=== PATIENT | female | born 1990 ===

== ENCOUNTER 2017-09-05 19:16 | Emergency (ER) | payer SELFPAY ==
[2017-09-05 20:01] VITALS: BMI 23.8
[2017-09-05] MEDS ORDERED: Iohexol 240 (50 ml) PO ONE (20:02)
[2017-09-05] MEDS ORDERED: Sodium Chloride 0.9% 1,000 ML IV STA (20:02)
--- NOTE | 2017-09-05 20:06 | ED PDOC ---
HPI: Abdomen Time Seen by Provider: 09/05/17 19:40 Chief Complaint (Provider): Abd pain History Per: Patient History/Exam Limitations: no limitations Onset/Duration Of Symptoms: Days () Additional Complaint(s): Pt. with abd pain L upper and lower. Left flank pain. Over the weekend and Saturday pt. had a lot of alcohol and coccaine. Has been having nausea, vomit, diarrhea since as well. No chest pain, weakness, headaches, dizziness, leg pain. No cough. No dysuria. Past Medical History Reviewed: Nursing Documentation, Vital Signs Vital Signs: Last Vital Signs Temp 98.5 F 09/05/17 20:24 Pulse 68 09/05/17 20:24 Resp 16 09/05/17 20:24 BP 132/73 09/05/17 20:24 Pulse Ox 98 09/05/17 20:24 - Medical History PMH: Anxiety - Surgical History Surgical History: No Surg Hx - Family History Family History: States: Unknown Family Hx - Living Arrangements Living Arrangements: With Family - Social History Alcohol: Occasional Drugs: Cocaine - Immunization History Hx Tetanus Toxoid Vaccination: Yes Hx Influenza Vaccination: No Hx Pneumococcal Vaccination: No - Home Medications Home Medications: Ambulatory Orders Medication Instructions Recorded Famotidine [Pepcid] 20 mg PO DAILY PRN #6 tab 03/20/15 Ibuprofen [Motrin] 600 mg PO Q8 PRN #6 tab 03/20/15 - Allergies Allergies/Adverse Reactions: Allergies Allergy/AdvReac Type Severity Reaction Status Date / Time No Known Allergies Allergy Verified 03/20/15 07:12 Review of Systems ROS Statement: Except As Marked, All Systems Reviewed And Found Negative Gastrointestinal: Positive for: Nausea, Vomiting, Abdominal Pain, Diarrhea Physical Exam - Reviewed Nursing Documentation Reviewed: Yes Vital Signs Reviewed: Yes - Physical Exam Appears: Positive for: Non-toxic, No Acute Distress Head Exam: Positive for: ATRAUMATIC, NORMAL INSPECTION, NORMOCEPHALIC Skin: Positive for: Normal Color, Warm, DRY Eye Exam: Positive for: EOMI, Normal appearance, PERRL ENT: Positive for: Normal ENT Inspection Neck: Positive for: Normal, Painless ROM Cardiovascular/Chest: Positive for: Regular Rate, Rhythm Respiratory: Positive for: CNT, Normal Breath Sounds Gastrointestinal/Abdominal: Positive for: Soft, Tenderness (L upper and lower). Negative for: Distended, Guarding Back: Positive for: L CVA Tenderness. Negative for: R CVA Tenderness Extremity: Positive for: Normal ROM Neurologic/Psych: Positive for: Alert, Oriented - Laboratory Results Result Diagrams: 09/05/17 20:45 09/05/17 20:45 Interpretation Of Abn Labs: no acute - CT Scan/US ct Other Rad Studies (CT/US): Read By Radiologist Other Rad Interpretation: no acute - Progress ED Course And Treament: 2355: Stable. AAOx3. Pain free. Tolerated PO. Fu with pcp. Disposition - Clinical Impression Clinical Impression: Abdominal pain - Patient ED Disposition Is Patient to be Admitted: No Counseled Patient/Family Regarding: Studies Performed, Diagnosis, Need For Followup - Disposition Referrals: [facility] [Outside] - 09/09/17 Disposition: Routine/Home Disposition Time: 00:09 Condition: STABLE Additional Instructions: Return if not better in 3 days. Instructions: Acute Abdomen (Belly Pain)
[2017-09-05] MEDS ORDERED: Iohexol 240 (50 ml) ONE (20:10)
[2017-09-05] MEDS ORDERED: Famotidine 20mg/50ml 20 MG/50 ML BAG IVPB ONE ×2 (20:11→20:15)
[2017-09-05 20:25] VITALS: BP 132/73; PULSE 68; RESP 16; TEMP 98.5; O2SAT 98
[2017-09-05 21:06] LABS: BASO # 0.1 K/uL (0.0-0.2); BASO % 0.6 % (0.0-2.0); EOS # 0.1 K/uL (0.0-0.7); EOS % 0.8 % (0.0-4.0); LYMPH % 23.5 % (20.0-40.0); MEAN CELL VOLUME 97.1 fl (81.0-99.0); MEAN CORPUSCULAR HEMOGLOBIN 32.1 pg (27.0-31.0); MEAN PLATELET VOLUME 10.2 fl (7.2-11.7); MONO # 0.7 K/uL (0.0-0.8); MONO % 7.8 % (0.0-10.0); NEUT # 5.8 K/uL (1.8-7.0); NEUT % 67.3 % (50.0-75.0); RBC 4.04 Mil/uL (3.80-5.20); RED CELL DISTRIBUTION WIDTH 13.6 % (11.5-14.5); WHITE BLOOD COUNT 8.6 K/uL (4.8-10.8)
[2017-09-05 21:08] LABS: PHENCYCLIDINE, UR NEGATIVE (NEGATIVE)
[2017-09-05 21:09] LABS: ALB/GLOB RATIO 1.2 (1.0-2.1); ALBUMIN 4.4 g/dL (3.5-5.0); ALT/SGPT 41 U/L (9-52); AST/SGOT 28 U/L (14-36); BLOOD UREA NITROGEN 13 mg/dl (7-17); CALCIUM 9.5 mg/dL (8.4-10.2); GFR AFRICAN-AMERICAN > 60; GFR NON-AFRICAN AMERICAN > 60; LIPASE 76 U/L (23-300)
[2017-09-05 21:16] LABS: BARBITURATES, UR NEGATIVE (NEGATIVE); BENZODIAZEPINES, UR NEGATIVE (NEGATIVE); OPIATES, UR NEGATIVE (NEGATIVE)
[2017-09-05] MEDS ORDERED: Iohexol 300 100 ML IJ ONE (22:22)
[2017-09-05] MEDS ORDERED: Sodium Chloride 0.9% 50 ML IV ONE (22:22)
--- NOTE | 2017-09-06 00:05 | CT ---
EXAM: CT Abdomen and Pelvis With Intravenous Contrast EXAM DATE/TIME: 09/05/2017 8:02 PM CLINICAL HISTORY: 26 years old, female; Pain; Abdominal pain; Localized; Left; Additional info: Abd pain TECHNIQUE: Axial computed tomography images of the abdomen and pelvis with intravenous contrast. All CT scans at this facility use one or more dose reduction techniques, viz.: automated exposure control; ma/kV adjustment per patient size (including targeted exams where dose is matched to indication; i.e. head); or iterative reconstruction technique. Coronal and sagittal reformatted images were created and reviewed. CONTRAST: 95 mL of [id number] administered intravenously. COMPARISON: There are no prior studies for comparison. FINDINGS: Lower thorax: Heart size is normal. Lung bases are clear ABDOMEN: Liver: There is fatty infiltration of the liver. Gallbladder and bile ducts: unremarkable Pancreas: unremarkable Spleen: unremarkable Adrenals: unremarkable Kidneys and ureters: unremarkable Stomach and bowel: Stomach is partially distended. Rotation is normal. Small bowel is partially opacified with oral contrast. There is no obstruction. Ileocecal region is unremarkable. Appendix and terminal ileum are unremarkable. Colon is incompletely distended which limits evaluation. PELVIS: Appendix: See stomach and bowel Bladder: unremarkable Reproductive: Uterus and adnexal structures are unremarkable. ABDOMEN and PELVIS: Intraperitoneal space: There is no free air or free fluid. Bones/joints: There are no acute osseous abnormalities. Soft tissues: unremarkable Vasculature: Vascular structures are unremarkable. Lymph nodes: There is shotty adenopathy. IMPRESSION: Fatty liver; no acute solid visceral or bowel abnormality Additional nonemergent findings as described above.
== END 2017-09-06 00:18 | disposition home or self-care (01) ==
LOC: H.ER 19:16
DX: R10.32 Left lower quadrant pain (principal); F41.9 Anxiety disorder, unspecified
CPT/HCPCS: 74177; 80053; 81025; 83690; 85025; 96361; 96374; 96375; 99283; G0480; J1885; J2405; J7030; Q9966; Q9967

== ENCOUNTER 2018-08-06 13:42 | Emergency (ER) | payer SELFPAY ==
[2018-08-06 13:43] VITALS: BMI 23.8
[2018-08-06] MEDS ORDERED: Sodium Chloride 0.9% 1,000 ML IV ONE (14:18)
--- NOTE | 2018-08-06 14:46 | ED PDOC ---
HPI: Abdomen Time Seen by Provider: 08/06/18 13:52 Chief Complaint (Nursing): Abdominal Pain Chief Complaint (Provider): Abdominal Pain History Per: Patient History/Exam Limitations: no limitations Onset/Duration Of Symptoms: Days (11) Current Symptoms Are (Timing): Still Present Location Of Pain/Discomfort: Suprapubic Quality Of Discomfort: Cramping Associated Symptoms: denies: Urinary Symptoms Additional Complaint(s): 27 year old female presents to the ED for an evaluation of possible and abdominal cramping for 11 days associated with one day of spotting (last week) intermittent dizziness, fatigue and bloating. Patient assumed this was secondary to her regular period. However, due to persistence of symptoms, she took a test last night that was positive. Patient states this is her second and she was 9 years ago which was terminated by D&C. Prior to arrival, patient did not take any medication. Currently, patient describes her abdominal pain as cramping and rates it 8/10. Otherwise, patient denies nausea, vomiting, diarrhea, fever, vaginal discharge, urinary symptoms or hematuria. LNMP: last week of June PMD: No Family Provider OBGYN: None Past Medical History Reviewed: Historical Data, Nursing Documentation, Vital Signs Vital Signs: Last Vital Signs Temp 97.6 F 08/06/18 13:45 Pulse 90 08/06/18 13:45 Resp 16 08/06/18 13:45 BP 126/72 08/06/18 13:45 Pulse Ox 100 08/06/18 13:45 Primary Care Provider: FAMILY PROVIDER,NO - Medical History PMH: Anxiety - Surgical History Other surgeries: D&C - Family History Family History: States: Unknown Family Hx - Home Medications Home Medications: Ambulatory Orders Medication Instructions Recorded Famotidine [Pepcid] 20 mg PO DAILY PRN #6 tab 03/20/15 Ibuprofen [Motrin] 600 mg PO Q8 PRN #6 tab 03/20/15 Acetaminophen [Acetaminophen 8 650 mg PO Q8 PRN #21 tablet.er 08/06/18 Hour] 21/Iron Fu/Folic Acid 1 each PO DAILY #60 tablet 08/06/18 [ Complete Caplet] - Allergies Allergies/Adverse Reactions: Allergies Allergy/AdvReac Type Severity Reaction Status Date / Time No Known Allergies Allergy Verified 08/06/18 13:47 Review of Systems ROS Statement: Except As Marked, All Systems Reviewed And Found Negative Constitutional: Positive for: Other (fatigue ). Negative for: Fever Gastrointestinal: Positive for: Abdominal Pain, Other (bloating ). Negative for: Nausea, Vomiting, Diarrhea Genitourinary Female: Positive for: Vaginal Bleeding (spotting ). Negative for: Dysuria, Frequency, Incontinence, Hematuria, Vaginal Discharge Neurological: Positive for: Dizziness Physical Exam - Reviewed Nursing Documentation Reviewed: Yes Vital Signs Reviewed: Yes - Physical Exam Comments: GENERAL APPEARANCE: Patient is awake, alert, oriented x 3, in no acute distress. SKIN: Warm, dry; (-) cyanosis. EYES: (-) conjunctival injection ENMT: Mucous membranes moist. Airway patent, (-) stridor. NECK: Supple, FROM CHEST AND RESPIRATORY: (-) rales, (-) rhonchi, (-) wheezes; breath sounds equal bilaterally. Respirations even and nonlabored, speaking in full sentences. HEART AND CARDIOVASCULAR: (-) irregularity ABDOMEN AND GI: Soft. (-) distention. Bowel sounds active x4; (+) mild suprapubic tenderness. (-) guarding, (-) rebound, (-) palpable masses, (-) CVA tenderness. EXTREMITIES: (-) deformity NEURO AND PSYCH: Mental status as above; (-) focal findings. Gait: steady. Speech: clear. (-) facial asymmetry - Laboratory Results Result Diagrams: 08/06/18 14:55 08/06/18 14:55 Urine POC: Positive - ECG O2 Sat by Pulse Oximetry: 100 (RA) Pulse Ox Interpretation: Normal Medical Decision Making Medical Decision Making: Time: 1420 Impression: 27yo female with abdominal pain and possible Plan: --Type and screen --BETA-HCG, Quantitative --CMP -- test --CBC w/ differential --Antivert 25mg PO --Normal saline 1000 mls/hr --Acetaminophen 650mg PO --IV insertion --U/A --Re-evaluation 1540 Upreg: positive Beta Quant: 1818.50 otherwise labs and U/A grossly unremarkable. Results discussed with patient who states that she has a family history of ectopic - mother. She notes that she is leaving the country to [facility] Saturday morning. She further notes that she does not have a PMD or OBGYN to follow up with outpatient. Patient advised that given beta quant value, IUP unlikely to be demonstrated on U/S. Case discussed with ED Director Dr Moncada who recommends U/S evaluation to evaluate for signs of potential ecoptic . U/S ordered. 1700 On re-evaluation, patient resting comfortably with no additional complaints. Pending U/S evaluation. Blood type: A+ 1730 Patient in U/S. 1810 U/S reviewed, radiology report follows Date of service: 08/06/2018 PROCEDURE: Transabdominal OB Pelvic Ultrasound HISTORY: confirm IUP LMP: 07/01/2018 COMPARISON: None available. FINDINGS: UTERUS: Gestational sac: Single intrauterine gestational sac. Gestational sac diameter measures 0.5 cm too small to characterize gestational age. Yolk sac and pole are not identified on the current examination. Berenice-gestational hemorrhage: None. Uterus measures 9.4 x 3.6 x 5.7 cm. Normal in size and appearance. CERVIX: Measures 2.2 x 1.5 x 2.4 cm. Long and closed. No cervical abnormality seen. RIGHT OVARY: Measures 3.3 x 2.5 x 3.4 cm. No mass lesion. Normal flow. LEFT OVARY: Measures cm. No solid mass. Normal flow. FREE FLUID: None. OTHER FINDINGS: None. IMPRESSION: Single intrauterine gestational sac too small to accurately characterize gestational age. Clinical and ultrasound follow-up is recommended to assess viability. Results discussed with patient with demonstrated understanding. Advised close follow up within 48-72 hours stressed to patient for repeat imaging/beta HCG testing. Advised patient to postpone travel plans however patient states she is unwilling to do so. Return parameters discussed as patient informed viability of not entirely certain and ectopic cannot be completely excluded at this time. On re-evaluation, patient reports improvement of symptoms. On exam, patient remains AAOx3, in no acute distress. Lungs clear to auscultation, cardiac RRR, abdomen soft, non-tender, repeat neuro exam shows no focal findings. Vitals stable. Patient provided with U/S report for follow up. Return parameters discussed and patient advised if unable to make outpatient appointment for follow up, to return to ED. Lab/Diagnostic results d/w the patient in great detail. Diagnosis of positive test, abdominal pain in early d/w the patient. Based on history, exam and diagnostic results, plan will be for outpatient follow up within 48-72 2hours. Patient instructed to follow-up with pmd / referral provided / the clinic in 1- 2 days without fail. Advised to take medication as prescribed. Return to the emergency room at any time for any new or worsening symptoms. Patient states she fully agrees with and understands discharge instructions. States that she agrees with the plan and disposition. Verbalized and repeated discharge instructions and plan. I have given the patient opportunity to ask any additional questions. Scribe Attestation: Documented by Maliha Ybarra, acting as a scribe for Chrystal Rodriguez PA-C. Provider Scribe Attestation: All medical record entries made by the Scribe were at my direction and personally dictated by me. I have reviewed the chart and agree that the record accurately reflects my personal performance of the history, physical exam, medical decision making, and the department course for this patient. I have also personally directed, reviewed, and agree with the discharge instructions and disposition. Disposition - Clinical Impression Clinical Impression: Abdominal pain during in first trimester, Positive test, Dizziness - Patient ED Disposition Is Patient to be Admitted: No Counseled Patient/Family Regarding: Studies Performed, Diagnosis, Need For Followup, Rx Given - Disposition Referrals: [facility] [Outside] [facility] [[facility]] Disposition: Routine/Home Disposition Time: 18:30 Condition: STABLE Additional Instructions: FOLLOW UP WITHIN 48-72 HOURS FOR REPEAT IMAGING AND BETA QUANT TESTING. RETURN TO ED IF UNABLE TO SCHEDULE OUTPATIENT APPT. The emergency medical care you received today was directed at your acute symptoms. If you were prescribed any medication, please fill it and take as directed. It may take several days for your symptoms to resolve. Return to the Emergency Department if your symptoms worsen, do not improve, or if you have any other problems. Please contact your doctor in 2 days for re-evaluation and follow up / or call one of the physicians/clinics you have been referred to that are listed on the Patient Visit Information form that is included in your discharge packet. Bring any paperwork you were given at discharge with you along with any medications you are taking to your follow up visit. Our treatment cannot replace ongoing medical care by a primary care provider (PCP) outside of the emergency department. Prescriptions: Acetaminophen [Acetaminophen 8 Hour] 650 mg PO Q8 PRN #21 tablet.er PRN Reason: Pain, Moderate (4-7) 21/Iron Fu/Folic Acid [ Complete Caplet] 1 each PO DAILY #60 tablet Instructions: Tests, Threatened Miscarriage (DC), Dizziness, Nonvertigo, (DC), Symptoms, - The First Month, - The Second Month, Stomach Pain in Early Forms: [employer] (Montenegrin) Print Language: AUSTRIAN - POA Present On Arrival: None Results - Lab Results Lab Results: 08/06/18 08/06/18 08/06/18 14:55 14:55 14:55 WBC 6.8 RBC 3.94 Hgb 12.8 Hct 38.8 MCV 98.4 MCH 32.5 H MCHC 33.0 RDW 12.7 Plt Count 225 MPV 9.6 Neut % (Auto) 71.2 Lymph % (Auto) 20.9 [place] % (Auto) 6.9 Eos % (Auto) 0.6 Baso % (Auto) 0.4 Neut # (Auto) 4.8 Lymph # (Auto) 1.4 [place] # (Auto) 0.5 Eos # (Auto) 0.0 Baso # (Auto) 0.0 Sodium 137 Potassium 3.9 Chloride 102 Carbon Dioxide 25 Anion Gap 14 BUN 18 H Creatinine 0.8 Est GFR ( Amer) > 60 Est GFR (Non-Af Amer) > 60 Random Glucose 77 Calcium 9.1 Total Bilirubin 0.6 AST 35 ALT 36 Alkaline Phosphatase 38 D Total Protein 7.8 Albumin 4.6 Globulin 3.2 Albumin/Globulin Ratio 1.4 Beta HCG, Quant 1818.50 Urine Color Urine Clarity Urine pH Ur Specific [place] Urine Protein Urine Glucose (UA) Urine Ketones Urine Blood Urine Nitrate Urine Bilirubin Urine Urobilinogen Ur Leukocyte Esterase Urine RBC (Auto) Urine Microscopic WBC Ur Squamous Epith Cells Hyaline Casts Blood Type A POSITIVE Antibody Screen Negative BBK History Checked No verified bt 08/06/18 14:55 WBC RBC Hgb Hct MCV MCH MCHC RDW Plt Count MPV Neut % (Auto) Lymph % (Auto) [place] % (Auto) Eos % (Auto) Baso % (Auto) Neut # (Auto) Lymph # (Auto) [place] # (Auto) Eos # (Auto) Baso # (Auto) Sodium Potassium Chloride Carbon Dioxide Anion Gap BUN Creatinine Est GFR ( Amer) Est GFR (Non-Af Amer) Random Glucose Calcium Total Bilirubin AST ALT Alkaline Phosphatase Total Protein Albumin Globulin Albumin/Globulin Ratio Beta HCG, Quant Urine Color Yellow Urine Clarity Slighty-cloudy Urine pH 5.0 Ur Specific [place] 1.024 Urine Protein Negative Urine Glucose (UA) Neg Urine Ketones Negative Urine Blood Negative Urine Nitrate Negative Urine Bilirubin Negative Urine Urobilinogen 0.2-1.0 Ur Leukocyte Esterase Neg Urine RBC (Auto) 3 Urine Microscopic WBC 1 Ur Squamous Epith Cells < 1 Hyaline Casts 0-2 Blood Type Antibody Screen BBK History Checked
[2018-08-06 15:20] LABS: BASO % 0.4 % (0.0-2.0); EOS % 0.6 % (0.0-4.0); HEMOGLOBIN 12.8 g/dL (12.0-16.0); LYMPH # 1.4 K/uL (1.0-4.3); LYMPH % 20.9 % (20.0-40.0); MEAN CELL VOLUME 98.4 fl (81.0-99.0); MEAN CORPUSCULAR HEMOGLOBIN 32.5 pg (27.0-31.0); MEAN PLATELET VOLUME 9.6 fl (7.2-11.7); MONO # 0.5 K/uL (0.0-0.8); MONO % 6.9 % (0.0-10.0); NEUT # 4.8 K/uL (1.8-7.0); NEUT % 71.2 % (50.0-75.0); RBC 3.94 Mil/uL (3.80-5.20); RED CELL DISTRIBUTION WIDTH 12.7 % (11.5-14.5); WHITE BLOOD COUNT 6.8 K/uL (4.8-10.8)
[2018-08-06 15:28] LABS: ALB/GLOB RATIO 1.4 (1.0-2.1); ALBUMIN 4.6 g/dL (3.5-5.0); ALT/SGPT 36 U/L (9-52); AST/SGOT 35 U/L (14-36); BLOOD UREA NITROGEN 18 mg/dl (7-17); CALCIUM 9.1 mg/dL (8.4-10.2); GFR NON-AFRICAN AMERICAN > 60
[2018-08-06 15:33] LABS: SQUAMOUS EPITHIAL < 1 /hpf (0-5); URINE BILIRUBIN NEGATIVE (NEGATIVE); URINE BLOOD NEGATIVE (NEGATIVE); URINE CLARITY SLIGHTY-CLOUDY (Clear); URINE COLOR YELLOW (YELLOW); URINE GLUCOSE (UA) NEG (NEGATIVE); URINE HYALINE CAST 0-2 /hpf (0-2); URINE LEUKOCYTE ESTERASE NEG Leu/uL (Negative); URINE PROTEIN NEGATIVE (NEGATIVE); URINE UROBILINOGEN 0.2-1.0 mg/dL (0.2-1.0)
--- NOTE | 2018-08-06 18:05 | US ---
Date of service: 08/06/2018 PROCEDURE: Transabdominal OB Pelvic Ultrasound HISTORY: confirm IUP LMP: 07/01/2018 COMPARISON: None available. FINDINGS: UTERUS: Gestational sac: Single intrauterine gestational sac. Gestational sac diameter measures 0.5 cm too small to characterize gestational age. Yolk sac and pole are not identified on the current examination. Berenice-gestational hemorrhage: None. Uterus measures 9.4 x 3.6 x 5.7 cm. Normal in size and appearance. CERVIX: Measures 2.2 x 1.5 x 2.4 cm. Long and closed. No cervical abnormality seen. RIGHT OVARY: Measures 3.3 x 2.5 x 3.4 cm. No mass lesion. Normal flow. LEFT OVARY: Measures cm. No solid mass. Normal flow. FREE FLUID: None. OTHER FINDINGS: None. IMPRESSION: Single intrauterine gestational sac too small to accurately characterize gestational age. Clinical and ultrasound follow-up is recommended to assess viability.
[2018-08-06 19:03] VITALS: BP 124/74; PULSE 72; RESP 18; TEMP 98.2
[2018-08-07 23:50] VITALS: O2SAT 100
== END 2018-08-06 19:07 | disposition home or self-care (01) ==
LOC: H.ER 13:42
DX: O26.891 Other specified pregnancy related conditions, first trimester (principal); R42 Dizziness and giddiness

== ENCOUNTER 2018-08-19 11:06 | Emergency (ER) | payer OTHER ==
[2018-08-19 11:07] VITALS: BMI 23.8
[2018-08-19 11:19] VITALS: BP 126/79; PULSE 92; RESP 16; TEMP 98.6; O2SAT 99
--- NOTE | 2018-08-19 13:54 | ED PDOC ---
HPI: Female Pain Time Seen by Provider: 08/19/18 11:47 Chief Complaint (Nursing): Female Genitourinary Chief Complaint (Provider): Female Genitourinary History Per: Patient History/Exam Limitations: no limitations Onset/Duration Of Symptoms: Days (x2) Additional Complaint(s): 27 years old female presents to ER for evaluation of vaginal spotting for the past 2 days. Patient was evaluated in ER on 08/06/2018 for bleeding and abdominal pain in early and was advised to come back in 2 days but patient reports she went on vacation for 10 days. She denies abdominal pain. LNMP: June 30 PMD: None provided : 2 Para: 0 Past Medical History Reviewed: Historical Data, Nursing Documentation, Vital Signs Vital Signs: Last Vital Signs Temp 98.6 F 08/19/18 11:14 Pulse 92 H 08/19/18 11:14 Resp 16 08/19/18 11:14 BP 126/79 08/19/18 11:14 Pulse Ox 99 08/19/18 11:14 Primary Care Provider: FAMILY PROVIDER,NO - Medical History PMH: Anxiety - Surgical History Surgical History: No Surg Hx - Family History Family History: States: Unknown Family Hx - Social History Current smoker - smoking cessation education provided: No Alcohol: Social Drugs: Denies - Immunization History Hx Tetanus Toxoid Vaccination: Yes Hx Influenza Vaccination: No Hx Pneumococcal Vaccination: No - Home Medications Home Medications: Ambulatory Orders Medication Instructions Recorded Famotidine [Pepcid] 20 mg PO DAILY PRN #6 tab 03/20/15 Ibuprofen [Motrin] 600 mg PO Q8 PRN #6 tab 03/20/15 Acetaminophen [Acetaminophen 8 650 mg PO Q8 PRN #21 tablet.er 08/06/18 Hour] 21/Iron Fu/Folic Acid 1 each PO DAILY #60 tablet 08/06/18 [ Complete Caplet] Pnv No.95/Ferrous Fum/Folic AC 1 each PO DAILY #30 tablet 08/19/18 [ Vitamins Tablet] - Allergies Allergies/Adverse Reactions: Allergies Allergy/AdvReac Type Severity Reaction Status Date / Time No Known Allergies Allergy Verified 08/19/18 11:12 Review of Systems ROS Statement: Except As Marked, All Systems Reviewed And Found Negative Gastrointestinal: Negative for: Abdominal Pain Genitourinary Female: Positive for: Vaginal Bleeding (spotting) Physical Exam - Reviewed Nursing Documentation Reviewed: Yes Vital Signs Reviewed: Yes - Physical Exam Appears: Positive for: Well, No Acute Distress Head Exam: Positive for: ATRAUMATIC, NORMOCEPHALIC Skin: Positive for: Normal Color, Warm, Dry ENT: Positive for: Normal ENT Inspection Neck: Positive for: Normal, Painless ROM, Supple Cardiovascular/Chest: Positive for: Regular Rate, Rhythm. Negative for: Murmur Respiratory: Positive for: Normal Breath Sounds. Negative for: Respiratory Distress Gastrointestinal/Abdominal: Positive for: Normal Exam, Soft. Negative for: Tenderness Back: Positive for: Normal Inspection. Negative for: L CVA Tenderness, R CVA Tenderness Extremity: Positive for: Normal ROM. Negative for: Pedal Edema, Swelling Neurological/Psych: Positive for: Awake, Alert, Oriented (x3) - Laboratory Results Lab Results: Beta HCG, Quant 01046.00 mIU/mL 08/19/18 12:30 - ECG O2 Sat by Pulse Oximetry: 99 (RA) Pulse Ox Interpretation: Normal Medical Decision Making Medical Decision Making: Time: 1154 Initial plan: --Beta-HXG --Urine --Urine dipstick --OB US 1424 OB US FINDINGS: LMP: 07/01/2018 Prior examinations from the current : 08/06/2018 TECHNIQUE: Real-time 2D imaging, duplex and color Doppler. FINDINGS: Cardiac activity: Present Rate: 133 BPM Measurements: [place] rump length: 0.76 cm Gestational age based on CRL 6 weeks 5 days Gestational age 6 weeks 5 days based on gestational sac measurement 2.13 cm Gestational age derived from LMP: 7 weeks GORAN based on LMP: 04/07/2019 GORAN based on biometry: 04/09/2019. Gestational concordance noted Yolk sac identified Cervix: No Cervical abnormalities: Negative examination for cervical dilatation or effacement. Closed cervix measuring Incidental finding: Nabothian cysts the largest measures 1.28 cm Subchorionic hemorrhage: None UTERUS: 5.1 x 7 x 8.7 cm. ADNEXA: Right: 1.9 x 2.5 x 3.3 cm. Normal Doppler arterial waveform documented. Left: 2.7 x 3.1 x 4.0 cm. Simple cyst 1.1 x 1.8 cm. Normal Doppler arterial waveform documented Fluid in the cul-de-sac: None IMPRESSION: 6 weeks 5 days live intrauterine gestation. Gestational concordance documented. Scribe Attestation: Documented by Juju Tobar acting as a scribe for Andreina Beckham MD. Provider Scribe Attestation: All medical record entries made by the Scribe were at my direction and personally dictated by me. I have reviewed the chart and agree that the record accurately reflects my personal performance of the history, physical exam, medical decision making, and the department course for this patient. I have also personally directed, reviewed, and agree with the discharge instructions and disposition. Disposition - Clinical Impression Clinical Impression: Threatened - Disposition [facility] [Outside] Condition: GOOD Prescriptions: Pnv No.95/Ferrous Fum/Folic AC [ Vitamins Tablet] 1 each PO DAILY #30 tablet Instructions: Threatened Miscarriage Forms: [employer] (Hungarian)
--- NOTE | 2018-08-19 14:54 | US ---
Date of service: 08/19/2018 PROCEDURE: 1st trimester ultrasound. HISTORY: Lower abd pain COMPARISON: 08/06/2018. Pelvic ultrasound. Summary of findings on the comparison examination: Single intrauterine gestational sac too small to accurately characterize gestational age TECHNIQUE: Standard protocol for this study/examination. FINDINGS: LMP: 07/01/2018 Prior examinations from the current : 08/06/2018 TECHNIQUE: Real-time 2D imaging, duplex and color Doppler. FINDINGS: Cardiac activity: Present Rate: 133 BPM Measurements: [place] rump length: 0.76 cm Gestational age based on CRL 6 weeks 5 days Gestational age 6 weeks 5 days based on gestational sac measurement 2.13 cm Gestational age derived from LMP: 7 weeks GORAN based on LMP: 04/07/2019 GORAN based on biometry: 04/09/2019. Gestational concordance noted Yolk sac identified Cervix: No Cervical abnormalities: Negative examination for cervical dilatation or effacement. Closed cervix measuring Incidental finding: Nabothian cysts the largest measures 1.28 cm Subchorionic hemorrhage: None UTERUS: 5.1 x 7 x 8.7 cm. ADNEXA: Right: 1.9 x 2.5 x 3.3 cm. Normal Doppler arterial waveform documented. Left: 2.7 x 3.1 x 4.0 cm. Simple cyst 1.1 x 1.8 cm. Normal Doppler arterial waveform documented Fluid in the cul-de-sac: None IMPRESSION: 6 weeks 5 days live intrauterine gestation. Gestational concordance documented.
== END 2018-08-19 15:28 | disposition home or self-care (01) ==
LOC: H.ER 11:06
DX: O20.0 Threatened abortion (principal); Z3A.01 Less than 8 weeks gestation of pregnancy